=== PATIENT | male | born 1980 | race Caucasian/White ===

== ENCOUNTER 2019-06-11 15:10 | Outpatient (CLI) | payer OTHER, SELFPAY ==
--- NOTE | 2019-06-11 | XR_ITS ---
WS: [id number] Left shoulder, 3 views, 06/11/2019 Clinical Data: PAIN IN SHOULDER Comparison: Left shoulder, 11/20/2016. Findings: No fractures or dislocations are seen. The AC joint is normal. The adjacent left clavicle, left scapu la and ribs are normal. The soft tissues are unremarkable. Proximal left second rib fracture has healed. XR/XR shoulder LT min 2V* [id number] Impression: Negative left shoulder.
== END 2019-06-11 15:11 | disposition home or self-care (01) ==
PROVIDERS: Family Provider Internal Medicine; Visit Provider Nurse Practitioner Family
DX: M25.512 Pain in left shoulder (principal)
CPT/HCPCS: 73030

== ENCOUNTER → 2019-09-24 08:18 | Outpatient (BNVA) | payer OTHER, SELFPAY | PROVIDERS: Family Provider Internal Medicine; Referring Provider Specialist; Visit Provider Anesthesiology Pain Medicine | DX: M54.17 Radiculopathy, lumbosacral region (principal); M54.9 Dorsalgia, unspecified; F17.210 Nicotine dependence, cigarettes, uncomplicated; Z79.891 Long term (current) use of opiate analgesic | CPT/HCPCS: 99204; 99205 ==

== ENCOUNTER → 2019-10-22 12:15 | Outpatient (BNVA) | payer OTHER, SELFPAY | PROVIDERS: Family Provider Internal Medicine; PCP Internal Medicine; Visit Provider Anesthesiology Pain Medicine | DX: M54.17 Radiculopathy, lumbosacral region (principal); M54.9 Dorsalgia, unspecified; F17.210 Nicotine dependence, cigarettes, uncomplicated; Z79.891 Long term (current) use of opiate analgesic | CPT/HCPCS: 99213; 99214 ==

== ENCOUNTER → 2019-11-05 13:31 | Outpatient (BNVA) | payer OTHER, SELFPAY | PROVIDERS: Family Provider Internal Medicine; PCP Internal Medicine; Visit Provider Anesthesiology Pain Medicine | DX: M47.816 Spondylosis without myelopathy or radiculopathy, lumbar region (principal); M54.17 Radiculopathy, lumbosacral region; M54.9 Dorsalgia, unspecified; Z79.891 Long term (current) use of opiate analgesic; F17.210 Nicotine dependence, cigarettes, uncomplicated | CPT/HCPCS: 64493; 64494; 64495; J2001; J3490 ==

== ENCOUNTER → 2019-11-19 08:30 | Outpatient (BNVA) | payer OTHER, SELFPAY | PROVIDERS: Family Provider Internal Medicine; PCP Internal Medicine; Visit Provider Anesthesiology Pain Medicine | DX: M54.17 Radiculopathy, lumbosacral region (principal); M54.9 Dorsalgia, unspecified; M79.18 Myalgia, other site; F17.210 Nicotine dependence, cigarettes, uncomplicated; Z79.891 Long term (current) use of opiate analgesic | CPT/HCPCS: 20553; 99214; J1030; J3490 ==

== ENCOUNTER → 2019-12-03 12:45 | Outpatient (BNVA) | payer OTHER, SELFPAY | PROVIDERS: Family Provider Internal Medicine; PCP Internal Medicine; Visit Provider Anesthesiology Pain Medicine | DX: M54.17 Radiculopathy, lumbosacral region (principal); M54.9 Dorsalgia, unspecified; F17.210 Nicotine dependence, cigarettes, uncomplicated; Z79.891 Long term (current) use of opiate analgesic | CPT/HCPCS: 64483; 64484; J1040; J2001; J3490 ==

== ENCOUNTER → 2019-12-31 13:07 | Outpatient (BNVA) | payer OTHER, SELFPAY | PROVIDERS: Family Provider Internal Medicine; PCP Internal Medicine; Visit Provider Anesthesiology Pain Medicine | DX: M54.17 Radiculopathy, lumbosacral region (principal); M54.9 Dorsalgia, unspecified; F17.210 Nicotine dependence, cigarettes, uncomplicated; Z79.891 Long term (current) use of opiate analgesic | CPT/HCPCS: 99213 ==

== ENCOUNTER → 2020-02-11 08:44 | Outpatient (BNVA) | payer OTHER, SELFPAY | PROVIDERS: Family Provider Internal Medicine; PCP Internal Medicine; Visit Provider Anesthesiology Pain Medicine | DX: M54.17 Radiculopathy, lumbosacral region (principal); M79.18 Myalgia, other site; M54.9 Dorsalgia, unspecified; F17.210 Nicotine dependence, cigarettes, uncomplicated; Z79.891 Long term (current) use of opiate analgesic | CPT/HCPCS: 20553; 99213; J1030; J3490 ==

== ENCOUNTER → 2020-03-10 13:37 | Outpatient (BNVA) | payer OTHER, SELFPAY | PROVIDERS: Family Provider Internal Medicine; PCP Internal Medicine; Visit Provider Anesthesiology Pain Medicine | DX: M47.816 Spondylosis without myelopathy or radiculopathy, lumbar region (principal); M54.17 Radiculopathy, lumbosacral region; M54.9 Dorsalgia, unspecified; F17.210 Nicotine dependence, cigarettes, uncomplicated; Z79.891 Long term (current) use of opiate analgesic | CPT/HCPCS: 99213 ==

== ENCOUNTER → 2020-05-31 10:36 | Outpatient (BNVA) | payer OTHER, SELFPAY | PROVIDERS: Family Provider Internal Medicine; PCP Internal Medicine; Visit Provider Specialist | DX: M25.561 Pain in right knee (principal) | CPT/HCPCS: 73560; 73565 ==

== ENCOUNTER 2020-05-31 13:31 | Outpatient (CLI) | payer OTHER, SELFPAY | END 2020-05-31 13:32 | disposition home or self-care (01) | LOC: SPT 13:32 | PROVIDERS: Family Provider Internal Medicine; PCP Internal Medicine; Visit Provider Specialist | DX: Z46.89 Encounter for fitting and adjustment of other specified devices (principal); M25.561 Pain in right knee | CPT/HCPCS: L1812 ==

== ENCOUNTER 2020-12-22 13:50 | Outpatient (CLI) | payer OTHER, SELFPAY ==
--- NOTE | 2020-12-22 13:57 | USCV_ITS ---
Jace Sanchez Age: 40 Gender: M : 1980 Exam Date: 12/22/2020 14:29 Ordering Phys: Rosemary Angelo CHEMICAL TECHNICIAN CHEMICAL TECHNICIAN Technologist: Inga Boo [place]am [place] [facility] [place]: RLE PAIN AND SWELLING HISTORY: Lower extremity swelling. Lower extremity pain. PROCEDURES: Venous duplex imaging was performed in only the right lower extremity. The following venous structures were evaluated: common femoral vein, profunda vein, proximal portion of the greater saphenous vein, superficial femoral vein, and the popliteal vein. In addition, the posterior tibial and peroneal trunk were evaluated. Serial compression, augmentation maneuvers, and spectral Doppler flow evaluation were performed. FINDINGS: Normal 2-D Doppler and augmentation and compressibility throughout the lower extremity venous structures. Additional imaging through the proximal calf veins also reveals no thrombus. Limited evaluation of the greater saphenous vein is patent with no thrombus. CONCLUSIONS No DVT right lower extremity. Dr. Ingris Ramires DO (Electronically Signed) Final Date: 22 December 2020 14:40 S
== END 2020-12-22 13:51 | disposition home or self-care (01) ==
LOC: RAD 13:51
PROVIDERS: PCP Internal Medicine; Visit Provider Nurse Practitioner Family
DX: M79.661 Pain in right lower leg (principal); M79.89 Other specified soft tissue disorders
CPT/HCPCS: 93971

== ENCOUNTER 2021-01-12 08:42 | Outpatient (CLI) | payer OTHER, SELFPAY ==
--- NOTE | 2021-01-12 08:48 | CT_ITS ---
WS: [id number] CTA OF THE CHEST WITH PULMONARY EMBOLISM PROTOCOL TECHNIQUE: High-resolution contrast enhanced CTA of the chest with coronal and sagittal reformatted i mages with pulmonary embolism protocol. MIP images are also reviewed. CLINICAL INFORMATION: PULMONARY EMBOLI COMPARISON: CTA August 31, 2018 DLP: 1646.[address] scans at [facility] use at least one of these dose optimization techniques: automat ed exposure control; mA and/or kV adjustment per patient size (includes targeted exams where dose is matched to clinical indication); or iterative reconstruction. FINDINGS: Proximal main pulmonary arteries are normal. Normal segmental and subsegmental pulmonary arteries. No suspicious filling defects. No evidence of pulmonary embolus. No suspicious pulmonary opacities. No acute-appearing pulmonary infiltrates. No focal pneumonia or pl eural fluid. 2 cm right hilar lymph node is unchanged. Adrenal glands are normal. Tiny left renal cysts. Normal GE junction. CT/CT angio chest PE protcl [id number] IMPRESSION: 1. No evidence of pulmonary embolus. 2. Lungs are well aerated. No acute pulmonary infiltrates. 3. Stable 2 cm right hilar lymph node unchanged since 2019.
[2021-01-12] MEDS: iohexol 350 mg/mL 100 mL Btl IV (09:10)
== END 2021-01-12 08:43 | disposition home or self-care (01) ==
PROVIDERS: PCP Internal Medicine; Visit Provider Internal Medicine
DX: I26.99 Other pulmonary embolism without acute cor pulmonale (principal)
CPT/HCPCS: 71275; Q9967

== ENCOUNTER → 2021-10-04 15:04 | Outpatient (BNVA) | payer OTHER, SELFPAY | PROVIDERS: PCP Internal Medicine; Referring Provider Nurse Practitioner Family; Visit Provider Orthopaedic Surgery | DX: M54.17 Radiculopathy, lumbosacral region (principal); M47.816 Spondylosis without myelopathy or radiculopathy, lumbar region | CPT/HCPCS: 72110 ==

== ENCOUNTER 2021-12-27 16:12 | Outpatient (CLI) | payer OTHER, SELFPAY ==
--- NOTE | 2021-12-27 16:55 | MR_ITS ---
WS: [id number] MRI LUMBAR SPINE NONCONTRAST HISTORY: Back pain, increasing. COMPARISON: 06/03/2019 TECHNIQUE: Sagittal and axial multisequence imaging is submitted. Retrocerebellar arachnoid cyst. Normal cervical and thoracic alignment. Normal lumbar alignment with no compression fractures or marrow edema. Mild disc space narrowing and desiccation at L4-5. No marrow edema or fracture. Conus terminates normally at L1. L1-L2: Normal. L2-L3: Mild facet joint arthritis and ligamentum flavum hypertrophy. No stenosis. L3-L4: Mild annular disc bulging. Again noted are very small bilateral foraminal disc protrusions con tacting the exiting nerve roots. There is also mild osteophytic ridging and facet arthritis. No signi ficant stenosis or progression. L4-L5: Mild annular disc bulge with ligamentum flavum and mild facet arthritis. There is a central di sc protrusion which is very shallow. Similar to the prior study. No significant stenosis. L5-S1: Mild annular disc bulging asymmetric to the RIGHT. There is mild encroachment upon the ventral thecal sac. Mild osteophytic ridging around the L5 vertebral body. RIGHT foraminal disc protrusion w ith minimal contact on the exiting L5 nerve root and mild narrowing of the RIGHT subarticular recess. Less contact on the RIGHT S1 nerve root as compared to the prior study. Mild central, bilateral suba rticular recess and foraminal stenosis. Paravertebral soft tissues are negative. MR/MR lumbar spine wo con* [id number] IMPRESSION: 1. No high-grade central or foraminal stenosis. 2. Mild progression of degenerative facet disease at L4-5 and L5-S1. 3. Mild central, bilateral subarticular recess and foraminal stenosis at L5-S1 with slightly greater encroachment upon the RIGHT L5 and S1 nerve roots. 4. Very small foraminal disc protrusions at L4-5. Without progression. No sig nificant contact on the nerve roots identified.
== END 2021-12-27 16:13 | disposition home or self-care (01) ==
LOC: RAD 16:13
PROVIDERS: PCP Internal Medicine; Visit Provider Orthopaedic Surgery
DX: M48.07 Spinal stenosis, lumbosacral region (principal); M51.26 Other intervertebral disc displacement, lumbar region
CPT/HCPCS: 72148

== ENCOUNTER 2022-07-08 13:13 | Emergency (ER) | payer OTHER, SELFPAY ==
[2022-07-08 13:24] VITALS: BP 153/105; PULSE 102; RESP 16; TEMP 36.6; O2SAT 91; BMI 36.9
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
[2022-07-08 13:44] VITALS: RESP 16
[2022-07-08] MEDS: morphine 4 mg/mL SDV 1 mL IVP (13:44)
[2022-07-08 15:00] VITALS: RESP 16; O2SAT 97
[2022-07-08] MEDS: HYDROmorphone 1 mg/mL INJ 1 mL IVP (15:00)
[2022-07-08 15:42] VITALS: BP 123/86; PULSE 83; RESP 16; O2SAT 94
== END 2022-07-08 15:44 | disposition home or self-care (01) ==
PROVIDERS: Emergency Provider Family Medicine; PCP Nurse Practitioner Family
DX: T20.10XA Burn of first degree of head, face, and neck, unspecified site, initial encounter (principal); T21.12XA Burn of first degree of abdominal wall, initial encounter; X11.8XXA Contact with other hot tap-water, initial encounter
CPT/HCPCS: 96374; 96375; 99284; J1170; J2270

== ENCOUNTER → 2022-09-30 13:49 | Outpatient (BNVA) | payer SELFPAY | PROVIDERS: PCP Nurse Practitioner Family; Visit Provider Podiatrist Foot & Ankle Surgery | DX: M72.2 Plantar fascial fibromatosis (principal) | CPT/HCPCS: 73630 ==

== ENCOUNTER 2023-06-27 12:45 | Outpatient (CLI) | payer SELFPAY ==
--- NOTE | 2023-06-27 12:53 | MR_ITS ---
WS: [id number] MRI HEAD WITH CONTRAST TECHNIQUE: Sagittal T1, T2 axial, T2 axial FLAIR, axial susceptibility weighted imaging, axial diffus ion weighted images, and coronal T2 images were obtained. Pre and post-T1 axial and post T1 coronal i mages. ADC and FSPGR images. CLINICAL INFORMATION: NYSTAGMUS COMPARISON: CT head 2017 FINDINGS: No evidence of restricted diffusion to suggest acute ischemia. Ventricular system and basal cisterns are patent. No suspicious intracranial signal abnormalities. Mild parenchymal volume loss. Normal posterior fossa. Incidental retrocerebellar arachnoid cyst measuring 3.4 x 1.9 cm. Normal vasc ular flow voids at the skull base. Mild RIGHT maxillary sinusitis. Trace mucosal thickening of the ma stoid air cells. Normal posterior nasopharynx. No abnormal gadolinium enhancement. Normal dural venou s sinuses. Normal optic chiasm and pituitary infundibulum. No hemosiderin on the susceptibly weighted images. Temporal lobes and hippocampal formations are normal in appearance. IMPRESSION: 1. No evidence of restricted diffusion to suggest acute ischemia. 2. No suspicious intracranial signal abnormalities. Mild parenchymal volume loss progressed since 20 17. 3. Incidental retrocerebellar arachnoid cyst. 4. Mild RIGHT maxillary sinusitis. Trace mucosal thickening in the mastoid air cells. 5. No abnormal gadolinium enhancement. 6. No other suspicious findings.
[2023-06-27] MEDS: gadobenate dimeglumine 20 mL vial IV (13:56)
== END 2023-06-27 12:46 | disposition home or self-care (01) ==
LOC: RAD 12:48
PROVIDERS: PCP Nurse Practitioner Family; Visit Provider Family Medicine
DX: H55.00 Unspecified nystagmus (principal); J32.0 Chronic maxillary sinusitis
CPT/HCPCS: 70553; A9577

== ENCOUNTER 2023-07-02 16:50 | Emergency (ER) | payer SELFPAY ==
[2023-07-02 16:51] VITALS: BP 124/88; PULSE 108; RESP 20; TEMP 36.3; O2SAT 93; BMI 32.8
--- NOTE | 2023-07-02 16:51 | XRR_ITS ---
PROCEDURE INFORMATION: Exam: XR Chest Exam date and time: 07/02/2023 4:58 PM Age: 42 years old Clinical indication: Angina pectoris; Patient HX: Mediastinal chest pain; Smoker; HTN TECHNIQUE: Imaging protocol: Radiologic exam of the chest. Views: 1 view. COMPARISON: CR XR chest 2V* [id number] 10/04/2021 3:56 PM FINDINGS: Lungs: Unremarkable. No consolidation. Pleural spaces: Unremarkable. No pleural effusion. No pneumothorax. Heart/Mediastinum: Unremarkable. No cardiomegaly. Bones/joints: Unremarkable. XR/XR chest 1V portable [id number] IMPRESSION: No acute findings.
--- NOTE | 2023-07-02 16:54 | ECG_ITS ---
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 Measurements Intervals [place] Rate: 106 P: 24 [place]: 151 QRS: -20 QRSD: 92 T: 32 QT: 332 QTc: 442 Interpretive Statements SINUS TACHYCARDIA ABNORMAL RHYTHM ECG Compared to ECG 06/29/2017 14:27:56 Indeterminate axis no longer present Electronically Signed On 07-02-2023 21:39:21 STEAM GENERATING POWERPLANT MECHANIC by Maryann House M.D. [email or web address], [id number]
--- NOTE | 2023-07-02 17:03 | ED_ITS ---
HPI - Chest Pain 2 General: Chief Complaint: Chest Pain Stated Complaint: Chest Pain Time Seen by Provider: 07/02/23 16:51 Source: patient and EMS Mode of arrival: EMS Limitations: no limitations History of Present Illness: 42-year-old male states that just prior arrival he started having chest pain in the center of his chest with some diaphoresis and dyspnea. Denies any cough or fever no history of heart disease. Denies any worsening improving factors. He did receive nitro and aspirin in route states his pain is currently a 3 out of 10. 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 Lumbosacral radiculopathy due to intervertebral disc disorder Hypertension Allergic rhinitis Migraine Smoker Surgical History History of cholecystectomy History of appendectomy H/O repair of rotator cuff Family History Father CAD (coronary artery disease) Mother Diabetes Social History Smoking and tobacco/nicotine status: current every day tobacco/nicotine user Alcohol intake: never Substance/Drug Use: never Lives independently: Yes Household members: spouse Marital status: Current occupational status: employed Physical Exam 2 Const: COMMON NORMALS: patient oriented x3 HENMT: COMMON NORMALS: normocephalic and atraumatic HEAD & SCALP: n ormocephalic and atraumatic Eye: COMMON NORMALS: Equal, round and reactive pupils present and EOMs intact bilaterally PUPIL: Yes Equal, round and reactive pupils present Neck/C-Spine: COMMON NORMALS: full ROM and supple Chest: COMMONS NORMALS: normal inspection of the chest and normal palpation of entire chest wall Resp: COMMON NORMALS: normal respiratory effort, No retractions, No use of accessory muscles and clear to auscultation bilaterally AUSCULTATION: clear to auscultation bilaterally Cardio: COMMON NORMALS: regular rhythm and No murmurs present (Cardio) R ATE: tachycardic RHYTHM: regular rhythm GI: COMMON NORMALS: Normal to inspection, nondistended, normoactive bowel sounds present, Soft to palpation, non-tender and no masses PALPATION: Yes Soft to palpation Extremity: COMMON NORMALS: normal to inspection and full ROM Neuro: COMMON NORMALS: patient oriented x3, moves all extremities and no focal motor deficits Psych: COMMON NORMALS: mental status grossly normal, Normal thought process present and cooperative THOUGHT PROCESS: Normal thought process present Skin: COMMON NORMALS: no rashes or lesions noted and no wounds GENERAL SKIN EXAM: no rashes or lesions noted Course 2 Vital Signs: Vital signs: Vital Signs Temperature 97.4 F L 07/02/23 16:51 Pulse Rate 68 07/02/23 19:39 Respiratory Rate 18 07/02/23 17:07 Blood Pressure 119/72 07/02/23 19:39 Pulse Oximetry 99 07/02/23 19:39 Oxygen Delivery Me thod Room Air 07/02/23 16:51 MDM - Chest Pain Medical Decision Making Patient presents here with chest pains atypical in nature his D-dimer here is normal no signs of pulm embolism he has no signs of acute coronary syndrome both troponins are normal he feels improved here he is stable for discharge follow-up with PCP and return if worsening. Medical Records I reviewed the patient's medical records. Lab Data I reviewed the patient's lab results. 07/02/23 16:56 07/02/23 16:56 Radiology Impressions Chest X-Ray 07/02/23 16:51 IMPRESSION: No acute findings. Laboratory Results WBC 10.61 10^3/uL (3.29-11.43) 07/02/23 16:56 RBC 5.24 10^6/uL (3.85-5.65) 07/02/23 16:56 Hgb 16.90 g/dL (11.27-16.99) 07/02/23 16:56 Hct 49.0 % (37-53) 07/02/23 16:56 MCV 93.5 fl (82-101) 07/02/23 16:56 MCH 32.3 pg (27-33) 07/02/23 16:56 MCHC 34.5 g/dL (30-55) 07/02/23 16:56 RDW 12.5 % (12.1-15.1) 07/02/23 16:56 Plt Count 219 10^3/cmm (157-399) 07/02/23 16:56 MPV 10.7 fL (7.4-10.4) H 07/02/23 16:56 Neut % (Auto) 58.5 % 07/02/23 16:56 Lymph % (Auto) 29.9 % 07/02/23 16:56 [place] % (Auto) 7.4 % 07/02/23 16:56 Eos % (Auto) 2.9 % 07/02/23 16:56 Baso % (Auto) 0.8 % 07/02/23 16:56 Neut # (Auto) 6.20 10^3/uL (1.8-7.7) 07/02/23 16:56 Lymph # (Auto) 3.2 10^3/uL (0.8-4.8) 07/02/23 16:56 [place] # (Auto) 0.8 10^3/uL (0.2-0.9) 07/02/23 16:56 Eos # (Auto) 0.3 10^3/uL (0.0-0.8) 07/02/23 16:56 Baso # (Auto) 0.1 10^3/uL (0.0-0.1) 07/02/23 16:56 Nucleated RBC % (auto) 0 % 07/02/23 16:56 Nucleated RBCs # 0.0 /100WBC 07/02/23 16:56 PT 13.50 SECONDS (12.1-14.9) 07/02/23 16:56 INR 1.00 (0.8-1.2) 07/02/23 16:56 D-Dimer 0.30 ug/mLFEU (0-0.59) 07/02/23 16:56 Sodium 139 mmol/L (136-145) 07/02/23 16:56 Potassium 3.8 mmol/L (3.5-5.1) 07/02/23 16:56 Chloride 103 mmol/L (98-107) 07/02/23 16:56 Carbon Dioxide 20 mmol/L (22-29) L 07/02/23 16:56 Anion Gap 19.8 (5-19) H 07/02/23 16:56 BUN 10 mg/dL (6-20) 07/02/23 16:56 Creatinine 0.7 mg/dL (0.7-1.2) 07/02/23 16:56 GFR Calculation 124.9 mL/min (90-130) 07/02/23 16:56 Glucose 145 mg/dL (65-115) H 07/02/23 16:56 Calculated Osmolality 290 mOsm/kg (285-295) 07/02/23 16:56 Calcium 9.8 mg/dL (8.5-10.5) 07/02/23 16:56 Total Bilirubin 0.3 mg/dL (0.15-1.2) 07/02/23 16:56 AST 37 U/L (0-40) 07/02/23 16:56 ALT 47 U/L (0-41) H 07/02/23 16:56 Alkaline Phosphatase 88 U/L (40-130) 07/02/23 16:56 Troponin T Baseline < 6 ng/L (0-15) 07/02/23 16:56 Troponin T 120 Minute 6.00 ng/L (0-15) 07/02/23 18:40 Delta Troponin T 0.04792 ABS# (0-10) 07/02/23 18:40 Total Protein 7.5 g/dL (6.6-8.7) 07/02/23 16:56 Albumin 4.3 g/dL (3.5-5.2) 07/02/23 16:56 Globulin 3.2 g/dL (1.3-4.6) 07/02/23 16:56 Lipase 18 U/L (13-60) 07/02/23 16:56 All radiology interpretation(s) finalized by discharge EKG Data EKG 1: I personally reviewed and interpreted this EKG as follows: EKG interpretation date: 07/02/23 EKG interpretation time: 16:54 Interpretation: sinus tach hr [address] or t wave abnormalities qrs 92 qtc 394 EKG 2: I personally reviewed and interpreted this EKG as follows: EKG interpretation date: 07/02/23 EKG interpretation time: 18:27 Interpretation: sinus tach hr [address] or t wave abnormalities qrs 89 qtc 401 Discharge Plan Discharge Patient Disposition: Home Clinical Impression: Chest pain Condition: Stable Prescriptions: No Action acetaminophen [Tylenol Extra Strength] 500 mg tablet 1,000 mg PO QID PRN (DME) hinged knee brace See Rx Instructions .ROUTE .MEDSUPPLY Qty: 1 0RF Rx Instructions: As directed Cortisporin-TC 3.3-3-10-0.5 mg/mL drops,suspension 4 drp otic (ear) TID 7 Days Qty: 10 0RF hydrocodone-acetaminophen 5-325 mg tablet 1 tab PO Q6H PRN (Reason: pain) Qty: 20 0RF ondansetron 4 mg tablet,disintegrating 4 mg PO Q6H PRN (Reason: nausea and vomiting) Qty: 14 0RF Discharge Orders: Discharge ED (Routine); Ordered 07/02/23 Ordered By: Merlene Yu Referrals: Ajith Arora MD [Primary Care Provider] - 4-7 days Discharge Diet: Advance as tolerated Discharge Activity: Resume usual activity Patient Instructions: Chest Pain (ED) Coding Level of Care Code ED Coin Machine Supervisor for Kenzieg Brandon
[2023-07-02 17:07] VITALS: RESP 18; O2SAT 93
[2023-07-02] MEDS: ondansetron 2 mg/ML SDV 2 mL 4 MG IVP (17:07)
[2023-07-02] MEDS: morphine 4 mg/mL SDV 1 mL IVP (17:07)
[2023-07-02] MEDS: sodium chloride 0.9% 1,000 ML 999 ML IV (17:09)
[2023-07-02 17:17] LABS: Basophils # 0.1 10^3/uL (0.0-0.1); Basophils % 0.8 %; Eosinophils # 0.3 10^3/uL (0.0-0.8); Eosinophils % 2.9 %; Lymphocytes # 3.2 10^3/uL (0.8-4.8); Lymphocytes % 29.9 %; Mean Corpuscular HGB Conc 34.5 g/dL (30-55); Mean Corpuscular Hemoglobin 32.3 pg (27-33); Mean Corpuscular Volume 93.5 fl (82-101); Mean Platelet Volume 10.7 fL (7.4-10.4); Monocytes # 0.8 10^3/uL (0.2-0.9); Monocytes % 7.4 %; Neutrophils % 58.5 %; Nucleated Red Blood Cells % 0 %; Platelet Count 219 10^3/cmm (157-399); Red Blood Count 5.24 10^6/uL (3.85-5.65); Red Cell Distribution Width 12.5 % (12.1-15.1); White Blood Count 10.61 10^3/uL (3.29-11.43)
[2023-07-02 17:32] LABS: Alanine Aminotransferase 47 U/L (0-41); Albumin Level 4.3 g/dL (3.5-5.2); Alkaline Phosphatase 88 U/L (40-130); Aspartate Amino Transferase 37 U/L (0-40); Blood Urea Nitrogen 10 mg/dL (6-20); Calcium 9.8 mg/dL (8.5-10.5); Carbon Dioxide 20 mmol/L (22-29); Chloride 103 mmol/L (98-107); Globulin 3.2 g/dL (1.3-4.6); Glomerular Filtration Rate 124.9 mL/min (90-130); Glucose 145 mg/dL (65-115); Lipase 18 U/L (13-60); Osmolality Calculated 290 mOsm/kg (285-295); Sodium 139 mmol/L (136-145); Total Bilirubin 0.3 mg/dL (0.15-1.2); Total Protein 7.5 g/dL (6.6-8.7)
[2023-07-02 17:35] LABS: Anion Gap 19.8 (5-19); Potassium 3.8 mmol/L (3.5-5.1)
[2023-07-02 17:50] LABS: Troponin(5th) Baseline < 6 ng/L (0-15)
[2023-07-02] MEDS: LORazepam 2 mg/mL INJ 10 mL MDV 1 MG IVP (18:18)
--- NOTE | 2023-07-02 18:27 | ECG_ITS ---
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 Measurements Intervals [place] Rate: 108 P: 24 DC: 159 QRS: -18 QRSD: 89 T: 32 QT: 338 QTc: 454 Interpretive Statements SINUS TACHYCARDIA INDETERMINATE AXIS POSSIBLE ANTERIOR MYOCARDIAL INFARCTION , PROBABLY OLD [30 ms Q WAVE IN V3/V4, OR R < 0.2 mV IN V4] ABNORMAL RHYTHM ECG Compared to ECG 07/02/2023 16:54:10 Indeterminate axis now present Myocardial infarct finding now present Electronically Signed On 07-02-2023 21:45:57 CURTAIN MENDER by Maryann House M.D. [id number]
[2023-07-02 19:05] LABS: Troponin 5 2HR Delta 0.00001 ABS# (0-10)
[2023-07-02 19:39] VITALS: BP 119/72; PULSE 68; O2SAT 99
== END 2023-07-02 19:40 | disposition home or self-care (01) ==
PROVIDERS: Emergency Provider Emergency Medicine; PCP Family Medicine
DX: R07.9 Chest pain, unspecified (principal); I10 Essential (primary) hypertension; Z72.0 Tobacco use
CPT/HCPCS: 36415; 71045; 80053; 83690; 84484; 85025; 85378; 85610; 93005; 96361; 96374; 96375; 99285; J2060; J2270; J2405; J7030

== ENCOUNTER 2023-07-23 12:00 | Outpatient (CLI) | payer OTHER, SELFPAY ==
--- NOTE | 2023-07-23 12:03 | USCV_ITS ---
Jace Sanchez Age: 42 Gender: M : 1980 Exam Date: 07/23/2023 12:19 Ordering Phys: Ajith Arora MD Technologist: CT Exam Location: [facility] [place] Indication: cp BP: 146 / 90 HR: Rhythm: Sinus Technical Quality: Adequate MEASUREMENTS (Male / Female) Normal Values 2D ECHO LVOT Diameter 2.0 cm LV Ejection Fraction MOD 2C 66.4 % Aorta at Sinotubular Diameter 2.5 cm M-MODE LA Ao Ratio MM 1.2 AV Cusp Separation MM 1.7 cm DOPPLER AV Peak Velocity 94.0 cm/s LVOT Peak Velocity 82.0 cm/s AV Area Cont Eq vti 3.5 cm squared AV Area Cont Eq pk 2.8 cm squared MV Area PHT 4.8 cm squared Mitral E to A Ratio 67.0 TR Peak Velocity 104.0 cm/s TR Peak Gradient 4.3 mmHg Right Atrial Pressure 3.0 mmHg Pulmonary Artery Systolic Pressu 7.3 mmHg PV Peak Velocity 114.0 cm/s FINDINGS Left Ventricle Left ventricle is normal size. LV systolic function is normal with EF of 55 to 60%. No regional wall abnormalities are seen. Grade 1 diastolic dysfunction Right Ventricle Normal in size and function Right Atrium Normal in size Left Atrium Normal in size Mitral Valve Structurally normal mitral valve. Mild mitral regurgitation. Aortic Valve Structurally normal aortic valve. No significant stenosis or regurgitation. Tricuspid Valve Mild tricuspid regurgitation. Insufficient TR jet to evaluate RVSP. Pulmonic Valve Not well visualized Pericardium Normal Aorta Normal in size IVC Appears to be normal CONCLUSIONS LV systolic function is normal with EF of 55 to 60%. Grade 1 diastolic dysfunction Mild mitral regurgitation Mild tricuspid regurgitation Compared to prior echocardiogram from 2018, no significant changes are seen Adrian Dennison MD (Electronically Signed) Final Date: 02 August 2023 11:00 S
== END 2023-07-23 12:01 | disposition home or self-care (01) ==
LOC: RAD 12:00
PROVIDERS: PCP Family Medicine; Visit Provider Family Medicine
DX: I08.1 Rheumatic disorders of both mitral and tricuspid valves (principal); R07.89 Other chest pain
CPT/HCPCS: 93306

== ENCOUNTER 2023-08-20 12:36 | Outpatient (CLI) | payer OTHER, SELFPAY | END 2023-08-20 12:37 | disposition home or self-care (01) | LOC: RT 12:36 | PROVIDERS: PCP Family Medicine; Visit Provider Family Medicine | DX: R06.09 Other forms of dyspnea (principal) | CPT/HCPCS: 94010; 94726; 94729 ==

== ENCOUNTER 2023-11-07 16:58 | Emergency (ER) | payer OTHER, SELFPAY ==
[2023-11-07 16:59] VITALS: BP 184/109; PULSE 96; RESP 16; TEMP 36.6; O2SAT 95; BMI 34.4
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
[2023-11-07 17:20] LABS: Basophils # 0.1 10^3/uL (0.0-0.1); Basophils % 0.7 %; Eosinophils # 0.5 10^3/uL (0.0-0.8); Eosinophils % 5.1 %; Hematocrit 47.9 % (37-53); Lymphocytes # 4.3 10^3/uL (0.8-4.8); Mean Corpuscular HGB Conc 34.7 g/dL (30-55); Mean Corpuscular Hemoglobin 32.1 pg (27-33); Mean Corpuscular Volume 92.6 fl (82-101); Mean Platelet Volume 11.2 fL (7.4-10.4); Monocytes # 0.9 10^3/uL (0.2-0.9); Monocytes % 9.1 %; Neutrophils # 4.22 10^3/uL (1.8-7.7); Neutrophils % 41.8 %; Nucleated Red Blood Cells % 0 %; Platelet Count 221 10^3/cmm (157-399); Red Blood Count 5.17 10^6/uL (3.85-5.65); Red Cell Distribution Width 12.8 % (12.1-15.1); White Blood Count 10.08 10^3/uL (3.29-11.43)
[2023-11-07] MEDS: iohexol 350 mg/mL 500 mL Btl (per mL) IV (17:30)
[2023-11-07 17:36] LABS: Alanine Aminotransferase 27 U/L (0-41); Albumin Level 4.4 g/dL (3.5-5.2); Alkaline Phosphatase 86 U/L (40-130); Aspartate Amino Transferase 30 U/L (0-40); Blood Urea Nitrogen 13 mg/dL (6-20); Calcium 9.1 mg/dL (8.5-10.5); Carbon Dioxide 23 mmol/L (22-29); Chloride 102 mmol/L (98-107); Creatinine Clr Calc Pharmacy 123.7429; Globulin 3.5 g/dL (1.3-4.6); Glomerular Filtration Rate 82.3 mL/min (90-130); Glucose 107 mg/dL (65-115); Osmolality Calculated 289 mOsm/kg (285-295); Sodium 139 mmol/L (136-145); Total Bilirubin 0.4 mg/dL (0.15-1.2); Total Protein 7.9 g/dL (6.6-8.7)
[2023-11-07 17:38] LABS: Anion Gap 17.8 (5-19); Potassium 3.8 mmol/L (3.5-5.1)
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
[2023-11-07 18:00] VITALS: BP 152/95; PULSE 90; O2SAT 93
[2023-11-07 18:09] VITALS: RESP 17
[2023-11-07] MEDS: ondansetron 2 mg/ML SDV 2 mL 4 MG IVP (18:09)
[2023-11-07] MEDS: morphine 4 mg/mL SDV 1 mL IVP (18:09)
[2023-11-07 18:46] VITALS: BP 135/94; PULSE 86; O2SAT 97
== END 2023-11-07 18:49 | disposition home or self-care (01) ==
PROVIDERS: Family Medicine; Emergency Provider Student in an Organized Health Care Education/Training Program; PCP Family Medicine
DX: S13.4XXA Sprain of ligaments of cervical spine, initial encounter (principal); Z72.0 Tobacco use; I10 Essential (primary) hypertension; V89.2XXA Person injured in unspecified motor-vehicle accident, traffic, initial encounter
CPT/HCPCS: 70450; 71260; 72125; 74177; 80053; 85025; 96374; 96375; 99285; J2270; J2405; Q9967

== ENCOUNTER 2024-03-28 23:21 | Emergency (ER) | payer OTHER, SELFPAY ==
[2024-03-28 23:23] VITALS: BP 123/79; PULSE 113; RESP 26; TEMP 36.5; O2SAT 95; BMI 35.9
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
[2024-03-28 23:38] LABS: Basophils # 0.1 10^3/uL (0.0-0.1); Basophils % 0.4 %; Eosinophils # 0.5 10^3/uL (0.0-0.8); Eosinophils % 3.8 %; Hematocrit 46.7 % (37-53); Lymphocytes # 6.1 10^3/uL (0.8-4.8); Lymphocytes % 51.3 %; Mean Corpuscular HGB Conc 34.7 g/dL (30-55); Mean Corpuscular Hemoglobin 32.7 pg (27-33); Mean Corpuscular Volume 94.3 fl (82-101); Mean Platelet Volume 10.5 fL (7.4-10.4); Monocytes # 0.8 10^3/uL (0.2-0.9); Monocytes % 6.8 %; Neutrophils % 37.3 %; Nucleated Red Blood Cells % 0 %; Platelet Count 243 10^3/cmm (157-399); Red Blood Count 4.95 10^6/uL (3.85-5.65); Red Cell Distribution Width 13.7 % (12.1-15.1)
[2024-03-28] MEDS: ipratropium-albuterol 3 mL Neb INHALATION (23:56)
[2024-03-28 23:57] VITALS: PULSE 113; RESP 20; O2SAT 7
[2024-03-28 23:57] LABS: Anion Gap 15.7 (5-19); Blood Urea Nitrogen 7 mg/dL (6-20); Carbon Dioxide 21 mmol/L (22-29); Chloride 107 mmol/L (98-107); Creatinine Clr Calc Pharmacy 169.9288; Glomerular Filtration Rate 124.3 mL/min (90-130); Glucose 146 mg/dL (65-115); Osmolality Calculated 293 mOsm/kg (285-295); Sodium 141 mmol/L (136-145)
[2024-03-29 00:03] LABS: Potassium 2.7 mmol/L (3.5-5.1)
[2024-03-29 00:05] VITALS: PULSE 114; RESP 20; O2SAT 97
[2024-03-29 00:12] LABS: ABG PCO2 41.2 mmHg (35-45); ABG PH Result 7.33 (7.35-7.45); Arterial Blood Gas Hematocrit 49.9 % (42-52); Base Excess ABG -3.8 mmol/L (-2.0-2.0); Blood Gas Allen Test Pos; Blood Gas Sample Site Radial, right; Blood Gas Sample Type Arterial; Carboxyhemoglobin 4.4 %THgb (0.4-20.1); HCO3 ABG 21.9 mmol/L (22-26); Methemoglobin 0.3 % (0.4-1.5); Oxygen Device NC; PO2 FiO2 Ratio Arterial Blood 317; Total Hemoglobin 16.3 g/dL (14-18)
[2024-03-29 00:29] VITALS: BP 124/90; PULSE 109; RESP 26; O2SAT 95
[2024-03-29 00:59] VITALS: BP 134/97; PULSE 108; RESP 20; O2SAT 96
--- NOTE | 2024-03-29 01:22 | ECG_ITS ---
[facility] Test Date: 2024-03-29 Pat Name: Jace Sanchez Department: Room: Gender: Male Processing Associate: : 1980 Requested By: Wally Boyer Order Number: [id number] Lazaro MD: RODNEY TAVAREZ Measurements Intervals [place] Rate: 105 P: 34 NC: 171 QRS: -3 QRSD: 92 T: 20 QT: 344 QTc: 456 Interpretive Statements SINUS TACHYCARDIA ABNORMAL RHYTHM ECG Compared to ECG 07/02/2023 18:27:03 Indeterminate axis no longer present Myocardial infarct finding no longer present Electronically Signed On 03-30-2024 21:01:44 CDT by RODNEY TAVAREZ [email or web address]
[2024-03-29 01:30] VITALS: BP 127/84; PULSE 105; RESP 14; O2SAT 96
--- NOTE | 2024-03-29 01:39 | PC.NURSE ---
Called to room by family stating pt went out . Stated pt was talking to them, completely awake, then went out . This RN to bedside. Pt is on cardiac monitoring. All vitals are stable. Pt is maintaining airway. Pt does not respond to sternal rub. Episode lasted approx 30 seconds and then pt woke up suddenly gasping. notified. EKG obtained. Pt immediately alert and oriented up awakening. Denies CP.
[2024-03-29] MEDS: ketorolac 30 mg/mL INJ IVP (01:58)
--- NOTE | 2024-03-29 04:25 | ED_ITS ---
HPI - SOB/Dyspnea 2 General: Chief Complaint: Shortness of Breath/Dyspnea Stated Complaint: RESP. DISTRESS Time Seen by Provider: 03/28/24 23:29 History of Present Illness: HPI Narrative: This patient is a 43-year-old white male who presents to the emergency department with shortness of breath and wheezing. He does have a history of asthma. Patient states this started about 2 hours prior to arrival. He did use his albuterol metered-dose inhaler without much relief. He was brought in by EMS. They did administer terbutaline, Decadron and albuterol and route. Related Data Home Medications Medication Instructions Recorded Confirmed acetaminophen 500 mg tablet 1,000 mg PO QID PRN 09/01/19 09/30/22 (Tylenol Extra Strength) Previous Rx's Medication Instructions Recorded hinged knee brace #1 ea 05/31/20 [id number] 3.3 4 drp otic (ear) TID 7 days #10 mL 10/15/20 mg-3 mg-10 mg-0.5 mg/mL ear drops,susp (Cortisporin-TC) hydrocodone 5 mg-acetaminophen 325 1 tab PO Q6H PRN pain #20 tabs 07/08/22 mg tablet ondansetron 4 mg disintegrating 4 mg PO Q6H PRN nausea and 07/08/22 tablet vomiting #14 tabs hydrocodone 5 mg-acetaminophen 325 1 tab PO Q8H PRN pain #10 tabs 11/07/23 mg tablet albuterol sulfate 90 mcg/actuation 2 inh inhalation Q4H PRN shortness 03/29/24 aerosol inhaler (Ventolin HFA) of breath or wheezing #8.5 grams ipratropium 0.5 mg-albuterol 3 mg 3 ml inhalation Q4H PRN shortness 03/29/24 (2.5 mg base)/3 mL nebulization of breath or wheezing #180 mL soln potassium chloride 20 mEq 20 meq PO DAILY #20 tabs 03/29/24 tablet,extended release(part/cryst) Allergies Allergy/AdvReac Type Severity Reaction Status Date / Time prochlorperazine Allergy ADR-Agitate Verified 03/28/24 23:26 [From Compazine] d tramadol AdvReac Intermediate ALGY-Hives Verified 03/28/24 23:26 Review of Systems 2 General: Reports: 10 or more systems reviewed and unremarkable except in HPI and below Resp: Reports: dyspnea and wheezing PFSH ED 2 PFSH: Medical History 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 Lumbosacral radiculopathy due to intervertebral disc disorder Hypertension Allergic rhinitis Migraine Smoker Surgical History History of cholecystectomy History of appendectomy H/O repair of rotator cuff Family History Father CAD (coronary artery disease) Mother Diabetes Social History Smoking and tobacco/nicotine status: current every day tobacco/nicotine user Alcohol intake: never Substance/Drug Use: never Lives independently: Yes Household members: spouse Marital status: Current occupational status: employed Physical Exam 2 Const: COMMON NORMALS: patient oriented x3 and no limitations GENERAL APPEARANCE: cooperative HENMT: COMMON NORMALS: normocephalic, atraumatic, Normal nasal mucous membranes and turbinates present, moist oral mucous membranes and oropharynx normal HEAD & SCALP: normal to inspection, normocephalic and atraumatic F [place] & SINUS: normal facial exam NOSE: Normal nasal mucous membranes and turbinates present Eye: COMMON NORMALS: Equal, round and reactive pupils present, EOMs intact bilaterally and conjunctivae normal GENERAL EYE: appearance normal, both eyes and all related structures CONJUNCTIVA: Yes conjunctivae normal PUPIL: Yes Equal, round and reactive pupils present Neck/C-Spine: COMMON NORMALS: supple and no JVD Chest: COMMONS NORMALS: normal inspection of the chest Resp: COMMON NORMALS: normal respiratory effort EFFORT & INSPECTION: Yes able to speak in complete sentences AUSCULTATION: wheezes (Mild) Cardio: COMMON NORMALS: no JVD, regular rate, regular rhythm, No gallops present (Cardio), No murmurs present (Cardio) and No rub (Cardio) RATE: r egular rate RHYTHM: regular rhythm GI: COMMON NORMALS: Normal to inspection, nondistended, normoactive bowel sounds present, Soft to palpation and non-tender AUSCULTATION: Yes normoactive bowel sounds PALPATION: Yes Soft to palpation : COMMON NORMALS: Yes no CVA tenderness BLADDER/KIDNEY EXAM: Yes no CVA tenderness Back/Pelvis: COMMON NORMALS: no CVA tenderness and thoracic and lumbar spine normal to inspection Extremity: COMMON NORMALS: normal to inspection Neuro: COMMON NORMALS: patient oriented x3 and CN's II-XII intact bilaterally Psych: COMMON NORMALS: mental status grossly normal, Normal thought process present and cooperative THOUGHT PROCESS: Normal thought process present Skin: COMMON NORMALS: no rashes or lesions noted, turgor normal and no jaundice GENERAL SKIN EXAM: no rashes or lesions noted and turgor normal Course 2 Vital Signs: Vital signs: Vital Signs Temperature 97.7 F 03/28/24 23:23 Pulse Rate 105 H 03/29/24 01:30 Respiratory Rate 14 03/29/24 01:30 Blood Pressure 127/84 03/29/24 01:30 Pulse Oximetry 96 03/29/24 01:30 Oxygen Delivery Me thod Room Air 03/29/24 00:29 Oxygen Flow Rate 4 03/29/24 00:05 MDM - SOB/Dyspnea Medical Decision Making Patient was given DuoNeb treatment in the emergency department. CBC revealed a white blood cell count of 11.8. BMP was normal except for low potassium of 2.7. EKG revealed sinus rhythm with no ST segment abnormalities. Chest x-ray did not reveal any infiltrates. Patient's lungs are clear now. He is satting 95 to 96% on room air. Patient was placed on a prednisone burst and taper. Also prescribed a refill for his albuterol metered-dose inhaler. Also prescribed a home nebulizer with DuoNeb solution. Recommended he follow-up with his primary care physician in 2 to 3 days for recheck. If condition worsens return to the emergency department. He was discharged in stable condition. Lab Data 03/28/24 23:23 03/28/24 23:23 Labs/Radiology: Radiology Impressions Chest X-Ray 03/28/24 23:34 IMPRESSION: Low lung volumes with basilar atelectasis and central compressive change. Laboratory Results WBC 11.80 10^3/uL (3.29-11.43) H 03/28/24 23:23 RBC 4.95 10^6/uL (3.85-5.65) 03/28/24 23:23 Hgb 16.20 g/dL (11.27-16.99) 03/28/24 23:23 Hct 46.7 % (37-53) 03/28/24 23: MCV 94.3 fl (82-101) 03/28/24 23:23 MCH 32.7 pg (27-33) 03/28/24 23:23 MCHC 34.7 g/dL (30-55) 03/28/24 23: RDW 13.7 % (12.1-15.1) 03/28/24 23:23 Plt Count 243 10^3/cmm (157-399) 03/28/24 23:23 MPV 10.5 fL (7.4-10.4) H 03/28/24 23:23 Neut % (Auto) 37.3 % 03/28/24 23:23 Lymph % (Auto) 51.3 % 03/28/24 23:23 [place] % (Auto) 6.8 % 03/28/24 23:23 Eos % (Auto) 3.8 % 03/28/24 23: Baso % (Auto) 0.4 % 03/28/24 23:23 Neut # (Auto) 4.40 10^3/uL (1.8-7.7) 03/28/24 23:23 Lymph # (Auto) 6.1 10^3/uL (0.8-4.8) H 03/28/24 23:23 [place] # (Auto) 0.8 10^3/uL (0.2-0.9) 03/28/24 23:23 Eos # (Auto) 0.5 10^3/uL (0.0-0.8) 03/28/24 23:23 Baso # (Auto) 0.1 10^3/uL (0.0-0.1) 03/28/24 23:23 Nucleated RBC % (auto) 0 % 03/28/24 23: Nucleated RBCs # 0.0 /100WBC 03/28/24 23:23 Specimen Type Arterial 03/28/24 00:05 Sample Site Radial, right 03/28/24 00:05 ABG pH 7.33 (7.35-7.45) L 03/28/24 00:05 ABG pCO2 41.2 mmHg (35-45) 03/28/24 00:05 ABG pO2 111.0 mmHg (80.0-100.0) H 03/28/24 00:05 ABG PO2/FiO2 Ratio 317 03/28/24 00:05 ABG HCO3 21.9 mmol/L (22-26) L 03/28/24 00:05 ABG Base Excess -3.8 mmol/L (-2.0-2.0) L 03/28/24 00:05 Dion Test Pos 03/28/24 00:05 Hematocrit 49.9 % (42-52) 03/28/24 00:05 Hgb O2 Saturation 94.0 % (95-100) L 03/28/24 00:05 Carboxyhemoglobin 4.4 %THgb (0.4-20.1) 03/28/24 00:05 Methemoglobin 0.3 % (0.4-1.5) L 03/28/24 00:05 Total Hemoglobin 16.3 g/dL (14-18) 03/28/24 00:05 O2 Delivery Device Nc 03/28/24 00:05 O2 Liters/Min 4.0 % 03/28/24 00:05 FiO2 35.0 % 03/28/24 00:05 Disaster Recovery Specialist ID [email or web address] 03/28/24 00:05 Sodium 141 mmol/L (136-145) 03/28/24 23:23 Potassium 2.7 mmol/L (3.5-5.1) L* 03/28/24 23:23 Chloride 107 mmol/L (98-107) 03/28/24 23:23 Carbon Dioxide 21 mmol/L (22-29) L 03/28/24 23:23 Anion Gap 15.7 (5-19) 03/28/24 23:23 BUN 7 mg/dL (6-20) 03/28/24 23:23 Creatinine 0.7 mg/dL (0.7-1.2) 03/28/24 23:23 GFR Calculation 124.3 mL/min (90-130) 03/28/24 23:23 Glucose 146 mg/dL (65-115) H 03/28/24 23:23 Calculated Osmolality 293 mOsm/kg (285-295) 03/28/24 23:23 Calcium 9.0 mg/dL (8.5-10.5) 03/28/24 23:23 All radiology interpretation(s) finalized by discharge Discharge Plan Discharge Patient Disposition: Home Clinical Impression: Asthma with exacerbation Condition: Stable Prescriptions: New ipratropium-albuterol 0.5 mg-3 mg(2.5 mg base)/3 mL solution for nebulization 3 ml inhalation Q4H PRN (Reason: shortness of breath or wheezing) Qty: 180 0RF Rx Instructions: until breathing returns to target peak flow/parameters potassium chloride 20 mEq tablet,ER particles/crystals 20 meq PO DAILY Qty: 20 0RF albuterol sulfate [Ventolin HFA] 90 mcg/actuation HFA aerosol inhaler 2 inh inhalation Q4H PRN (Reason: shortness of breath or wheezing) Qty: 8.5 0RF No Action acetaminophen [Tylenol Extra Strength] 500 mg tablet 1,000 mg PO QID PRN (DME) hinged knee brace See Rx Instructions .ROUTE .MEDSUPPLY Qty: 1 0RF Rx Instructions: As directed Cortisporin-TC 3.3-3-10-0.5 mg/mL drops,suspension 4 drp otic (ear) TID 7 Days Qty: 10 0RF hydrocodone-acetaminophen 5-325 mg tablet 1 tab PO Q8H PRN (Reason: pain) Qty: 10 0RF hydrocodone-acetaminophen 5-325 mg tablet 1 tab PO Q6H PRN (Reason: pain) Qty: 20 0RF ondansetron 4 mg tablet,disintegrating 4 mg PO Q6H PRN (Reason: nausea and vomiting) Qty: 14 0RF Discharge Orders: Discharge ED (Routine); Ordered 03/29/24 Ordered By: Wally Boyer Referrals: Ajith Arora MD [Primary Care Provider] - Patient Instructions: Asthma - Adult Stand Alone Forms: Work/School Release Coding Level of Care Code ED Manager Of Patient for Moe Taylor
== END 2024-03-29 02:24 | disposition home or self-care (01) ==
PROVIDERS: Emergency Provider Emergency Medicine; PCP Family Medicine
DX: J45.901 Unspecified asthma with (acute) exacerbation (principal); Z72.0 Tobacco use
CPT/HCPCS: 36600; 71045; 80048; 82805; 85025; 93005; 94640; 96374; 99285; J1885